=== PATIENT | female | born 1955 | race Caucasian/White ===

== ENCOUNTER 2016-08-18 08:00 | Outpatient (CLI) | payer BC ==
[~2016-08-18] VITALS: Ht 172.7 cm; Wt 63.6 kg
[2016-08-18] MEDS ORDERED: ALDACTONE25 MG PO (11:58)
[2016-08-18] MEDS ORDERED: PRINIVIL20 MG PO (11:58)
[2016-08-18] MEDS ORDERED: OMEPRAZOLE20 M1 PO (11:59)
[2016-08-18] MEDS ORDERED: PROMETRIUM100 MG PO (11:59)
[2016-08-18] MEDS ORDERED: PREMARIN0.3 MG PO (11:59)
[2016-08-18 12:15] LABS: HEMATOCRIT 39.8 % (36.0-48.0); HEMOGLOBIN 13.5 g/dL (12-16); MCH 31.3 pg (26.0-34.0); MCHC 33.9 g/dL (31.0-37.0); MCV 92.1 fL (80.0-100.0); MEAN PLATELET VOLUME 10.1 fL (7.4-10.4); RBC 4.32 10x6/uL (4.00-5.40); RDW 12.7 % (11.5-14.5); WBC 7.4 10x3/uL (4.8-10.8)
[2016-08-18 12:25] VITALS: Ht 172.7 cm; Wt 63.6 kg
[2016-08-18 12:34] LABS: ANION GAP 18.2 mmol/L (8-16); CALCIUM 9.6 mg/dL (8.5-10.1); CARBON DIOXIDE 21.5 mmol/L (21.0-32.0); CREATININE - SERUM 1.1 mg/dL (0.6-1.3); POTASSIUM - SERUM 3.7 mmol/L (3.5-5.1)
--- NOTE | 2016-08-18 15:48 | NUR ---
1548 AFTER PRE PROCEDURE INTERVIEW BY ISHA CASAS CRNA IT WAS DETERMINED PT HAS A CARDIOLOGY WORK UP SCHEDULED FOR CARDIOLOGY ISSUES SHE IS EXPERICING AND IS IN HER BEST INTEREST TO RESCHEDULE. DR. TINSLEY HAS SPOKEN TO PT. AND ALSO AGREES. IV HAS BEEN DC'D WITH CATH INTACT. RELEASED AMB. PT DECLINED OFFER OF WC ESCORT OUT.
--- NOTE | 2016-08-19 16:28 | HP ---
PATIENT: CONG TAVARES MEDICAL RECORD: [id number] ACCOUNT: [id number] LOCATION:D.OPS : 57 ADMISSION DATE: 08/18/16 HISTORY AND PHYSICAL EXAMINATION The patient was to undergo EGD and colonoscopy today. However, she has been having left shoulder pain. Left arm pain. She has dyspnea on exertion. There is a cardiac stress test planned for about a month from now. We are going to cancel her procedure for today and we will perform the procedure after she undergoes a cardiac workup. TRANSINT:[id number] Voice Confirmation ID: [id number] DOCUMENT ID: [id number] NAJMA TINSLEY MD Manually Signed by NAJMA TINSLEY CC: [id number] DICTATION DATE: 08/18/161509 WEED CONTROL INSPECTOR: [id number]/18/[id number] [facility] 08/18/16 [facility] [address] [place] [address]
== END 2016-08-18 23:59 | disposition home or self-care (01) ==
LOC: D.PAN 08:00 → D.OPS 11:20 → EDSTATUS 12:30 → D.OPS 12:30 → D.PAN 23:59
PROVIDERS: Anesthesiology
DX: Z53.09 Procedure and treatment not carried out because of other contraindication (principal); Z86.010 Personal history of colon polyps; M25.519 Pain in unspecified shoulder; M79.603 Pain in arm, unspecified; R06.00 Dyspnea, unspecified; Z79.899 Other long term (current) drug therapy; Z88.2 Allergy status to sulfonamides